=== PATIENT | female | born 1985 | race American Indian/Alaskan Native ===

== ENCOUNTER 2019-01-25 08:07 | Emergency (ER) | payer BC, OTHER ==
[2019-01-25 08:28] VITALS: BP 102/61
--- NOTE | 2019-01-25 09:34 | Emergency Department Report ---
HPI - General Chief Complaint: Medical Clearance Time Seen by Provider: 01/25/19 08:38 - HPI HPI: 33-year-old [place] female presents to the emergency department via EMS for a mental health evaluation. The patient says that she is here because "my thinks that I am crazy, but I am not crazy." The patient says that she and her have many disagreements and she says that when she disagrees with him that he tells her that she has mental health issues. 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 She says that she just wants to study but says that her was "provoking me." They were getting into the car today to drive towards [facility] to take this examination. The patient says that she felt overwhelmed and was arguing with her and so she got out of the car and started walking and sometimes running away. At some point she either fell or got very tired, and she says that she was asking a neighbor for assistance. At this point EMS and the police were contacted. I spoke to the patient's independently who says that he suspects that she has some undiagnosed, underlying mental health issues. He says that they do have some marital issues and disagreements and they have sought counseling in the past. He says that she is not very forthcoming and basically hides inside of herself. He says that today she had a "mental breakdown." The patient denies any suicidal or homicidal ideations or any hallucinations. ED Past Medical Hx - Past Medical History Previous Medical History?: No - Surgical History Past Surgical History?: No - Social History Smoking Status: Never Smoker Substance Use Type: None ED Review of Systems ROS: Stated complaint: EVALUATION Other details as noted in HPI Constitutional: denies: chills, fever Eyes: denies: eye pain, vision change ENT: denies: ear pain, throat pain Respiratory: denies: cough, shortness of breath Cardiovascular: denies: chest pain, palpitations Gastrointestinal: denies: abdominal pain, vomiting Genitourinary: denies: dysuria, discharge Musculoskeletal: denies: back pain, arthralgia Skin: denies: rash, lesions Neurological: denies: headache, weakness Psychiatric: denies: auditory hallucinations, visual hallucinations, homicidal thoughts, suicidal thoughts Physical Exam - Physical Exam Vital Signs: Vital Signs 01/25/19 08:11 Temperature 98.4 F Pulse Rate 77 Respiratory 18 Rate Blood Pressure 102/61 O2 Sat by Pulse 99 Oximetry Physical Exam: GENERAL: The patient is well-developed well-nourished. HENT: Normocephalic. Atraumatic. Patient has moist mucous membranes. EYES: Extraocular motions are intact. NECK: Supple. Trachea is midline. CHEST/LUNGS: Clear to auscultation. There is no respiratory distress noted. HEART/CARDIOVASCULAR: Regular. There is no tachycardia. There is no murmur. ABDOMEN: Abdomen is soft, nontender. Patient has normal bowel sounds. There is no abdominal distention. SKIN: Skin is warm and dry. NEURO: The patient is awake, alert, and oriented. The patient is cooperative. The patient has no focal neurologic deficits. The patient has normal speech. MUSCULOSKELETAL: There is no tenderness or deformity. There is no evidence of acute injury. ED Course Vital Signs 01/25/19 08:11 Temperature 98.4 F Pulse Rate 77 Respiratory 18 Rate Blood Pressure 102/61 O2 Sat by Pulse 99 Oximetry ED Medical Decision Making - Lab Data Result diagrams: 01/25/19 09:22 01/25/19 09:22 - Medical Decision Making This patient presents for a mental health evaluation. Most of the issues appear to be related to some disagreements that they are having with their marriage. The patient denies any suicidal or homicidal ideations or any hallucinations. She says that when they get into a disagreement, but the claims that she is having mental health issues. The 's main complaint is that she is very withdrawn when they are having an argument or discussion. Patient's labs have been unremarkable. Vital signs stable throughout her ED course. The patient was seen by the psych lawyer criminal, Nicole, who agrees that the patient does not appear to be a danger to herself, danger to others, having acute psychosis, or appear to be a candidate require a 1013 and inpatient involuntary psychiatric admission. The patient was given some outpatient psychiatric referrals if she would like to follow-up. I asked the patient if she feels safe returning to her home and with her and just says that she wants to call her friend and does not want to return with her at this point. left without any incident and the patient says that she has a ride and will provide for them in the waiting room. She has been encouraged to return to the emergency department if she changed her mind and feels that she needs some assistance or feels that she is in a unsafe environment or situation. Critical Care Time: No Critical care attestation.: If time is entered above; I have spent that time in minutes in the direct care of this critically ill patient, excluding procedure time. ED Disposition Clinical Impression: General medical examination Disposition: TO HOME OR SELFCARE Is pt being admited?: No Condition: Stable Additional Instructions: Please follow-up with your primary care physician and also with any of the outpatient psychiatric referrals that she will given. Return to the emergency Department with any worsening of your symptoms or any acute distress. Referrals: [facility] [Outside] - 2-3 Days [facility] [Outside] - 2-3 Days Forms: Accompanied Note Time of Disposition: 11:32
[2019-01-25 09:35] LABS: Basophils % (Auto) 0.2 % (0.0-1.8); Eosinophils % (Auto) 0.3 % (0.0-4.3); Hematocrit 39.9 % (30.3-42.9); Hemoglobin 13.6 gm/dl (10.1-14.3); Lymphocytes # (Auto) 1.8 K/mm3 (1.2-5.4); Lymphocytes % (Auto) 18.4 % (13.4-35.0); Mean Corpuscular HGB Conc 34 % (30-34); Mean Corpuscular Volume 88 fl (79-97); Monocytes # (Auto) 0.5 K/mm3 (0.0-0.8); Monocytes % (Auto) 4.8 % (0.0-7.3); Platelet Count 284 K/mm3 (140-440); Red Blood Count 4.55 M/mm3 (3.65-5.03); Red Cell Distribution Width 13.7 % (13.2-15.2)
[2019-01-25 09:53] LABS: BUN/Creatinine Ratio 18; Blood Urea Nitrogen 14 mg/dL (7-17); Calcium 8.7 mg/dL (8.4-10.2); Hemolysis Index 2
== END 2019-01-25 12:49 | disposition home or self-care (01) ==
LOC: ED 08:07
DX: Z00.00 Encounter for general adult medical examination without abnormal findings (principal)
CPT/HCPCS: 36415; 80048; 84703; 85025; 99284; G0480; 80320